=== PATIENT | female | born 1940 | race Two or more races ===

== ENCOUNTER → 2017-12-21 | Outpatient (CLI) | payer MEDICARE ==
[2017-12-21] MEDS: REGADENOSON 0.4 MG/5 ML DISP.SYRIN. IV (12:00)
== END | disposition home or self-care (01) ==
LOC: NM 09:46
DX: E78.00 Pure hypercholesterolemia, unspecified (principal); I11.9 Hypertensive heart disease without heart failure; R06.09 Other forms of dyspnea; R53.83 Other fatigue
CPT/HCPCS: 78452; 93017; 93306; 96374; 96375; 96376; A9500; J2785